=== PATIENT | female | born 1990 | race African-American/Black ===

== ENCOUNTER 2016-08-06 15:24 | Inpatient (IN) | payer OTHER ==
[2016-08-06 17:07] VITALS: BMI 26.2
[2016-08-06] MEDS ORDERED: AMPICILLIN - 2 GM in SODIUM CHLORIDE 100 ML IVPB ONE (17:18)
[2016-08-06] MEDS ORDERED: BETAMET ACET/BETAMET NA PH 30 MG/5 ML VIAL IM ONE (17:18)
[2016-08-06] MEDS ORDERED: MAGNESIUM 4GM/H20 - 100 ML IVPB SCH (17:30)
[2016-08-06] MEDS ORDERED: DEXTROSE 5%-LACTATED RINGERS 1,000 ML IV SCH (17:30)
[2016-08-06] MEDS ORDERED: MAGNESIUM SULFATE 20GM/500ML - 500 ML IV SCH (17:30)
[2016-08-06 17:33] LABS: BASOPHIL 0.5 % (0-2.0); EOSINOPHIL 0.7 % (0-4.5); MCH 30.6 pg (25.7-33.7); MEAN CELL VOLUME 87.3 fl (80-96); MEAN PLT VOLUME 8.2 fl (7.5-11.1); NEUTROPHILS 68.1 % (42.8-82.8); PLATELET COUNT 276 K/MM3 (134-434); RDW 12.8 % (11.6-15.6); WHITE BLOOD COUNT 12.9 K/mm3 (4.0-10.0)
[2016-08-06 17:40] LABS: CALCIUM 9.2 mg/dL (8.5-10.1); COCKROFT - GAULT 163.5995; CREATININE 0.5 mg/dL (0.55-1.02)
[2016-08-06 17:49] LABS: ACTIVATED PTT 24.6 SECONDS (26.9-34.4)
[2016-08-06 18:18] VITALS: BP 120/70; PULSE 95; TEMP 97.8
--- NOTE | 2016-08-06 18:27 | HP ---
Past Medical History - Primary Care Physician PCP:: Gil Hermosillo - Admission Chief Complaint: pregnacy 28 weeks, short cervix History of Present Illness: 26 yo f 28,1 weeks, hx of short cervix, care in [place] c/o of gush of water from vagina this am, clear fluid, no pain, no vaginal bleeding, no odor,speculum exam no fluid in xagia, nitrazine negative, cx 1 to 2 cm dilated visually, FHR cat 1. no contraction History Source: Patient Limitations to Obtaining History: No Limitations - Past Medical History ...: 1 ...Para: 0 ...Term: 0 ...: 0 ...Spon : 0 ...Induced : 0 ...Multiple Gestation: 0 ...LMP: 02/02/16 ... Weeks Gestation by Dates: 26.3 ...EDC by Dates: 11/08/16 ...EDC by Sono: 11/08/16 Infectious Disease: Yes: Other (hx of herpes, no out break with this ) - Past Surgical History Hx Myomectomy: No Hx Transabdominal Cerclage: No - Smoking History Smoking history: Never smoked Have you smoked in the past 12 months: No - Alcohol/Substance Use Hx Alcohol Use: No - Social History History of Recent Travel: No Home Medications - Allergies Allergies/Adverse Reactions: Allergies Allergy/AdvReac Type Severity Reaction Status Date / Time No Known Allergies Allergy Verified 08/06/16 15:29 - Home Medications Home Medications: Ambulatory Orders No Known Home Medication 03/07/16 Review of Systems - Review of Systems Constitutional: reports: No Symptoms Eyes: reports: No Symptoms HENT: reports: No Symptoms Neck: reports: No Symptoms Cardiovascular: reports: No Symptoms Respiratory: reports: No Symptoms Gastrointestinal: reports: No Symptoms Genitourinary: reports: No Symptoms Breasts: reports: No Symptoms Reported Musculoskeletal: reports: No Symptoms Neurological: reports: No Symptoms Endocrine: reports: No Symptoms Hematology/Lymphatic: reports: No Symptoms Psychiatric: reports: No Symptoms Physical Exam - Maternity Vital Signs: Vital Signs Temperature 98.2 F 08/06/16 16:54 Pulse Rate 80 08/06/16 16:54 Respiratory Rate 18 08/06/16 16:54 Blood Pressure 120/72 08/06/16 16:54 O2 Sat by Pulse Oximetry (%) 98 08/06/16 15:29 - Abdominal Exam/OB Fundal Height: 28 Number of Fetuses: Single Presentation: Vertex Contractions: No Intensity: Unaware Monitor Mode: External Heart Rate Location: [facility] Category: I Accelerations: Uniform Decelerations: None - Vaginal Exam/OB Vaginal Bleediing: No Speculum Exam: Yes Dilatation (cm): 1 to 2 Amniotic Membrane Status: Bulging Nitrazine Test: Negative Presentation: Vertex/Position - Physical Exam Musculoskeletal: Yes: WNL Edema: Yes Edema: LLE: Trace, RLE: Trace Deep Tendon Reflex Grade: Normal +2 - Labs Lab Results: CBC, BMP 08/06/16 17:13 08/06/16 17:13 Hemorrhage Risk Assessment - Risk Factors Risk Score: 0 Risk Level: Low Risk Problem List - Problems (1) with 28 completed weeks gestation Code(s): Z3A.28 - 28 WEEKS GESTATION OF (2) Short cervix affecting Code(s): O26.879 - CERVICAL SHORTENING, UNSPECIFIED TRIMESTER Assessment/Plan admit, MgSo4 ,celestone, iv amp. , monitoring, transfer to [facility] discussed with patient agreed
--- NOTE | 2016-08-06 18:47 | DS ---
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 Vital Signs: Vital Signs Temperature 97.8 F 08/06/16 18:00 Pulse Rate 95 H 08/06/16 18:00 Respiratory Rate 20 08/06/16 18:00 Blood Pressure 120/70 08/06/16 18:00 O2 Sat by Pulse Oximetry (%) 98 08/06/16 15:29 Constitutional: Yes: Well Nourished, No Distress, Calm Eyes: Yes: WNL, Conjunctiva Clear, EOM Intact HENT: Yes: WNL, Atraumatic, Normocephalic Neck: Yes: WNL, Supple, Trachea Midline Cardiovascular: Yes: WNL, Regular Rate and Rhythm Respiratory: Yes: WNL, Regular, CTA Bilaterally Gastrointestinal: Yes: WNL ...Rectal Exam: Yes: WNL Renal/: Yes: WNL Breast(s): Yes: WNL Musculoskeletal: Yes: WNL Extremities: Yes: WNL Integumentary: Yes: WNL Neurological: Yes: WNL, Alert, Oriented ...Motor Strength: WNL Psychiatric: Yes: WNL, Alert, Oriented Labs: CBC, BMP 08/06/16 17:13 08/06/16 17:13 Delivery, Single - Feeding Plan Initial Plan: Exclusive throughout hospitalization Remarks - Remarks Remarks: 28 weeks, short cervix , transferred to [facility] Discharge Summary Reason For Visit: ADMIT PRE-TERM LABOR Current Active Problems with 28 completed weeks gestation (Acute) Short cervix affecting (Acute) Condition: Good - Instructions Diet, Activity, Other Instructions: transferred to [facility] Disposition: TRANSFER ACUTE CARE/OTHER HOSP - Home Medications Comprehensive Discharge Medication List: Ambulatory Orders Vit/Iron Fumarate/FA [ Tablet] 1 each PO DAILY 08/06/16 Progesterone,Micronized [Progesterone] 200 mg VG DAILY 08/06/16
== END 2016-08-06 19:28 | disposition short-term general hospital (02) | DRG 566 ==
LOC: JER 15:24 → JLDR 16:33
PROVIDERS: ADMIT Obstetrics & Gynecology; ATTEND Obstetrics & Gynecology
DX: O26.873 Cervical shortening, third trimester (principal); Z3A.28 28 weeks gestation of pregnancy
CPT/HCPCS: 36415; 76801-TC; 76830-TC; 80048; 85025; 85610; 85730; 86593; 86850; 86900; 86901; 96372; 99282-25